=== PATIENT | female | born 1970 | race Caucasian/White ===

== ENCOUNTER 2017-02-06 05:57 | Emergency (ER) | payer BC, OTHER ==
[~2017-02-06] VITALS: Ht 175.3 cm; Wt 65.8 kg
[~2017-02-06 05:57] MED LIST: APAP500; APAP500 PO; BISACODYL SUPP10 MG; DERMOPLAST SPRA56 ML; IBUPROFEN 600600 M1; IBUPROFEN 600600 M1 PO; KEFLEX500 MG PO; LANOLIN56 GM; PREDNISONE 10 M10 M1 PO; SENNA PO; TUCKS MEDICATE1 EAC1; [UNRECOGNIZED DRUG - OTHER] TP; hydrocortisone 1% RE
[2017-02-06 06:39] LABS: URINE BILIRUBIN NEGATIVE (Negative); URINE BLOOD NEGATIVE (Negative); URINE COLOR YELLOW; URINE GLUCOSE-RANDOM* NEGATIVE (Negative); URINE KETONES NEGATIVE (Negative); URINE NITRITE NEGATIVE (Negative); URINE PROTEIN (DIPSTICK) NEGATIVE (Negative); URINE SPECIFIC GRAVITY <= 1.005 (1.003-1.035); URINE UROBILINOGEN 0.2 E.U./dl (0.2-1.0)
[2017-02-06 06:44] LABS: ABSOLUTE NEUTROPHILS 2.3 thou/uL (1.4-8.2); BASOPHILS 0.6 % (0.0-2.0); HEMATOCRIT 39.9 % (37.0-47.0); HEMOGLOBIN 13.8 gm/dL (12.0-15.0); LYMPHOCYTES 43.4 % (24.0-44.0); MCH 31.4 pg (26.0-34.0); MCHC 34.6 g/dL (28.0-37.0); MCV 90.5 fL (80.0-100.0); MONOCYTES 9.3 % (1.0-8.0); PLATELET COUNT 168 thou/uL (150-400); POLYS 44.7 % (36.0-66.0); RBC 4.41 mil/uL (4.20-5.00); RDW 13.4 % (10.5-14.5); WBC 5.1 thou/uL (4.0-11.0)
[2017-02-06 06:49] LABS: MANUAL DIFF NO
[2017-02-06 06:53] LABS: CALCIUM 9.5 mg/dL (8.5-10.1); CREATININE 0.9 mg/dL (0.6-1.0); POTASSIUM 3.5 mmol/L (3.5-5.1)
[2017-02-06] MEDS ORDERED: NOHOMEMEDICATIONS (07:08)
[2017-02-06 07:11] LABS: ALBUMIN 4.2 g/dL (3.4-5.0); DIRECT BILIRUBIN 0.2 mg/dL (<0.1-0.3); TOTAL BILIRUBIN 0.8 mg/dL (<0.1-1.0); TOTAL PROTEIN 7.9 g/dL (6.4-8.2)
[2017-02-06] MEDS ORDERED: SENOKOT-S1 TA1 PO (08:11)
[2017-02-06] MEDS ORDERED: CITRATE OF MAG296 ML PO (08:11)
[2017-02-06 09:01] VITALS: BP 110/70
== END 2017-02-06 09:03 | disposition home or self-care (01) ==
LOC: ER 05:57
PROVIDERS: Emergency Medicine
DX: K59.00 Constipation, unspecified (principal); N83.209 Unspecified ovarian cyst, unspecified side; Z85.828 Personal history of other malignant neoplasm of skin

== ENCOUNTER → 2017-06-30 | Outpatient (CLI) | payer BC, OTHER ==
[~2017-06-30] MED LIST changes: +CITRATE OF MAG296 ML PO; +NOHOMEMEDICATIONS; +SENOKOT-S1 TA1 PO
== END ==
LOC: RAD 02:04
DX: Z12.31 Encounter for screening mammogram for malignant neoplasm of breast (principal)

== ENCOUNTER → 2018-07-11 | Outpatient (CLI) | payer BC | LOC: RAD 00:17 | DX: Z12.31 Encounter for screening mammogram for malignant neoplasm of breast (principal) ==